=== PATIENT | male | born 2000 | race Caucasian/White ===

== ENCOUNTER 2025-04-01 14:45 | Outpatient (RCR) | payer BC, SELFPAY | END 2025-04-23 07:46 | disposition home or self-care (01) | PROVIDERS: PCP Family Medicine; Visit Provider Family Medicine | DX: M54.2 Cervicalgia (principal); M26.621 Arthralgia of right temporomandibular joint; Z51.89 Encounter for other specified aftercare | CPT/HCPCS: 97110; 97112; 97161 ==